=== PATIENT | female | born 1965 | race Caucasian/White ===

== ENCOUNTER 2018-10-28 09:32 | Outpatient (CLI) | payer OTHER ==
--- NOTE | 2018-10-28 12:48 | Mammography Report ---
Reason: RT BREAST LUMP Procedure Date: 10/28/2018 Accession Number: [id number] / [id number] Procedure: SYDNIE - Diagnostic Dig Bilat CPT Code: FULL RESULT: EXAM: Diagnostic Dig Bilat DATE: 10/28/2018 10:36 AM CLINICAL HISTORY: Diagnostic examination. Right breast lump for 6 months. TECHNIQUE: (B) - Bilateral CC and MLO views were obtained. Right spot CC, right spot MLO and right ML images are obtained. COMPARISON: 01/03/2011. PARENCHYMAL PATTERN: (A) - The breast(s) demonstrate(s) scattered fibroglandular densities. FINDINGS: No mammographic abnormality is identified in the region marked as palpable. There are no suspicious masses, calcifications, or areas of distortion. IMPRESSION: Negative examination. BI-RADS category 1. RECOMMENDATION: (ANNUAL) - Recommend routine annual screening mammography. BI-RADS CATEGORY: (1) - Negative. STANDARD QUALIFYING STATEMENTS: 1. This examination was not reviewed with the aid of Computer-Aided Detection (CAD). 2. A negative or benign imaging report should not preclude biopsy if clinically suspicious findings are present. 3. Dense breasts may obscure an underlying neoplasm. 4. This examination was reviewed with the aid of 3D breast imaging (tomosynthesis).
== END 2018-10-28 09:33 | disposition home or self-care (01) ==
LOC: DI 09:32
PROVIDERS: ATTEND Nurse Practitioner Family
DX: N63.14 Unspecified lump in the right breast, lower inner quadrant (principal)
CPT/HCPCS: 77062; 77066

== ENCOUNTER 2019-04-05 09:59 | Emergency (ER) | payer OTHER ==
--- NOTE | 2019-04-05 10:19 | ED Physician Documentation ---
PD HPI NVD - Stated complaint Stated Complaint: FEMALE /VOMITING - Chief complaint Chief Complaint: Abd Pain - History obtained from History obtained from: Patient - History of Present Illness Timing - onset: Today Timing - duration: Hours (4) Timing - details: Abrupt onset, Waxing and waning Pain level now: 9 Associated symptoms: Abdominal pain, Dizzy. No: Fever, Chest pain, Hematemesis, Melena, Hematochezia, Near syncope / syncope, Dysuria, Hematuria Contributing factors: No: Sick contact, Bad food, Travel Recently seen: Not recently seen - Additonal information Additional information: There is a 53-year-old woman who presents with her complains that she has pain in the left side of her abdomen that awoke abruptly at 530 this morning. She describes it as cramping waxing and waning and at a 9 out of 10 at its most severe. She had 2 bowel movements at home that were a little soft without blood in them and she has been vomiting. She feels really dizzy before she vomits but has not passed out. Pain is also radiating into her lower also into the left thigh. She does have a history of kidney stones that passed spontaneously she remembers that being more painful in the flank area. Denies dysuria or hematuria. No fevers although she is felt chilled. She is recently had a head cold that she thought might be allergies because she has had some coughing and a little bit of nasal congestion cage only feeling short of breath. She is status post C-sections and a hysterectomy no GI surgeries. Review of Systems Constitutional: reports: Chills. denies: Fever Ears: denies: Ear pain Nose: reports: Rhinorrhea / runny nose Throat: denies: Sore throat Cardiac: denies: Palpitations Respiratory: reports: Dyspnea, Cough GI: reports: Abdominal Pain, Nausea, Vomiting, Diarrhea (Loose stools). denies: Hematemesis, Bloody / black stool : denies: Dysuria, Frequency, Hesitancy, Incontinent, Hematuria Skin: denies: Rash Musculoskeletal: reports: Back pain Neurologic: denies: Near syncope, Syncope PD PAST MEDICAL HISTORY - Present Medications Home Medications: Ambulatory Orders Medication Instructions Recorded Confirmed Hydrocodone/Acetaminophen 1 - 2 each PO Q6H PRN #14 tablet 04/05/19 [Hydrocodon-Acetaminophen 5-325] Ondansetron Odt [Zofran] 4 mg TL Q6H PRN #10 tablet 04/05/19 - Allergies Allergies/Adverse Reactions: Allergies Allergy/AdvReac Type Severity Reaction Status Date / Time codeine Allergy Hives Verified 04/05/19 10:10 Latex, Natural Rubber Allergy Respiratory Verified 04/05/19 10:10 Sulfa (Sulfonamide Allergy Hives Verified 04/05/19 10:09 Antibiotics) Results - Vitals Vitals: Vital Signs - 24 hr 04/05/19 04/05/19 04/05/19 10:05 10:30 12:09 Temperature 36.0 C L 36.8 C 36.8 C Heart Rate 61 60 63 Respiratory 14 18 18 Rate Blood Pressure 199/78 H 180/86 H 142/74 H O2 Saturation 100 100 97 04/05/19 14:20 Temperature 37.1 C Heart Rate 58 L Respiratory 16 Rate Blood Pressure 137/71 H O2 Saturation 97 Oxygen O2 Source Room air - Labs Labs: Laboratory Tests 04/05/19 04/05/19 04/05/19 10:25 10:25 10:25 WBC 13.9 H RBC 5.10 Hgb 15.6 Hct 44.8 MCV 87.8 MCH 30.6 MCHC 34.8 RDW 11.8 L Plt Count 273 MPV 9.5 Neut # (Auto) 12.2 H Lymph # (Auto) 0.8 L Giles # (Auto) 0.8 Eos # (Auto) 0.0 Baso # (Auto) 0.1 Absolute Nucleated RBC 0.00 Nucleated RBC % 0.0 Sodium 139 Potassium 3.5 Chloride 103 Carbon Dioxide 24 Anion Gap 12.0 BUN 16 Creatinine 0.9 Estimated GFR (MDRD) 66 L Glucose 126 H Calcium 9.5 Total Bilirubin 1.3 H AST 22 ALT 17 Alkaline Phosphatase 62 Total Protein 7.8 Albumin 4.9 Globulin 2.9 Albumin/Globulin Ratio 1.7 Lipase 35 Urine Color YELLOW Urine Clarity TURBID Urine pH 5.5 Ur Specific [place] >=1.030 H Urine Protein 30 H Urine Glucose (UA) NEGATIVE Urine Ketones 40 H Urine Occult Blood MODERATE H Urine Nitrite NEGATIVE Urine Bilirubin SMALL H Urine Urobilinogen 0.2 (NORMAL) Ur Leukocyte Esterase NEGATIVE Urine RBC 0-5 Urine WBC 0-3 Ur Squamous Epith Cells NONE SEEN Amorphous Sediment Marked Urine Bacteria Rare Ur Microscopic Review INDICATED Urine Culture Comments NOT INDICATED Urine HCG, Qual 04/05/19 10:25 WBC RBC Hgb Hct MCV MCH MCHC RDW Plt Count MPV Neut # (Auto) Lymph # (Auto) Giles # (Auto) Eos # (Auto) Baso # (Auto) Absolute Nucleated RBC Nucleated RBC % Sodium Potassium Chloride Carbon Dioxide Anion Gap BUN Creatinine Estimated GFR (MDRD) Glucose Calcium Total Bilirubin AST ALT Alkaline Phosphatase Total Protein Albumin Globulin Albumin/Globulin Ratio Lipase Urine Color Urine Clarity Urine pH Ur Specific [place] >1.030 Urine Protein Urine Glucose (UA) Urine Ketones Urine Occult Blood Urine Nitrite Urine Bilirubin Urine Urobilinogen Ur Leukocyte Esterase Urine RBC Urine WBC Ur Squamous Epith Cells Amorphous Sediment Urine Bacteria Ur Microscopic Review Urine Culture Comments Urine HCG, Qual NEGATIVE - Rads (name of study) ct abd/pelvis Radiology: See rad report (6mm prox L ureteral stone) PD MEDICAL DECISION MAKING - ED course Complexity details: reviewed results, re-evaluated patient, d/w patient ED course: Patient was initially given 30 of Toradol IV as well as Zofran 4 mg IV. Is she said her pain was down to about a 4 out of 10. Urinalysis had red blood cells in it and her CT showed a large about 6 mm stone in the left proximal ureter with some hydronephrosis. Patient was given Dilaudid IV and her pain was down to a 2 out of 10 which she said was very tolerable. She had not been vomiting. She feels comfortable going home and will be provided the number for the urologist in [place]. She is to contact them on Sunday morning and in the meantime if she is feeling worse with increasing pain that is not controlled with hydrocodone prescription, she develops fever, she is vomiting and cannot ke ep anything down or is not urinating she needs to return for reevaluation. She states understanding. Departure - Departure Disposition: Home, Self Care Clinical Impression: Renal colic Condition: Good Instructions: ED Stone Renal W Colic Follow-Up: Shakir Pulliam MD [Physician No Access] - Prescriptions: Hydrocodone/Acetaminophen [Hydrocodon-Acetaminophen 5-325] 1 - 2 each PO Q6H PRN #14 tablet PRN Reason: pain Ondansetron Odt [Zofran] 4 mg TL Q6H PRN #10 tablet PRN Reason: Nausea / Vomiting Comments: Make sure that you are drinking plenty of water. Strain all the urine and save the stone if it is passed. Take hydrocodone if needed for pain. May also use ibuprofen [id number]. Use Zofran if needed for nausea or vomiting. Call the urology clinic in [place] on Sunday to arrange for follow-up appointment. Return for reevaluation if you have increasing pain is not controlled with the hydrocodone, you are vomiting and cannot keep anything down, you develop fever or are not urinating.
[2019-04-05] MEDS ORDERED: ONDANSETRON 4 MG/2 ML VIAL IVP STA (10:30)
[2019-04-05] MEDS ORDERED: SODIUM CHLORIDE 0.9% 1,000 ML IV ONE (10:30)
[2019-04-05] MEDS ORDERED: KETOROLAC 30 MG/ML VIAL IVP STA (10:30)
[2019-04-05 10:41] LABS: BASOPHILS # (AUTO) 0.1 10^3/uL (0.0-0.1); BASOPHILS % (AUTO) 0.5 %; BILIRUBIN,URINE SMALL (NEGATIVE); EOSINOPHILS % (AUTO) 0.2 %; GLUCOSE, URINE (UA) NEGATIVE (NEGATIVE); HGB - HEMOGLOBIN 15.6 g/dL (12.0-16.0); KETONES,URINE (UA) 40 mg/dL (NEGATIVE); LEUKOCYTE ESTERASE, URINE NEGATIVE (NEGATIVE); LYMPHOCYTES # (AUTO) 0.8 10^3/uL (1.5-3.5); LYMPHOCYTES % (AUTO) 5.8 %; MEAN CORPUSCULAR HEMOGLOBIN 30.6 pg (27.0-31.0); MEAN CORPUSCULAR HGB CONC 34.8 g/dL (32.0-36.0); MEAN CORPUSCULAR VOLUME 87.8 fL (81.0-99.0); MEAN PLATELET VOLUME 9.5 fL (7.9-10.8); MONOCYTES # (AUTO) 0.8 10^3/uL (0.0-1.0); MONOCYTES % (AUTO) 5.4 %; NEUTROPHILS # (AUTO) 12.2 10^3/uL (1.5-6.6); NEUTROPHILS % (AUTO) 87.6 %; NITRITE,URINE NEGATIVE (NEGATIVE); OCCULT BLOOD,URINE MODERATE (NEGATIVE); PH,URINE 5.5 PH (5.0-7.5); PLT - PLATELET COUNT 273 10^3/uL (130-450); PROTEIN,URINE 30 mg/dL (NEGATIVE); RED CELL DISTRIBUTION WIDTH 11.8 % (12.0-15.0); UROBILINOGEN,URINE 0.2 (NORMAL) E.U./dL (NORMAL); WHITE BLOOD COUNT 13.9 x10^3/uL (4.8-10.8)
[2019-04-05 10:43] LABS: CLARITY,URINE TURBID (CLEAR)
[2019-04-05 10:44] LABS: HCG UR QUAL NEGATIVE
[2019-04-05 10:45] LABS: ICTOTEST,URINE NEG
[2019-04-05 10:50] LABS: AMORPHOUS SEDIMENT,UR Marked /LPF; BACTERIA,URINE Rare /HPF (None Seen); RBC,URINE 0-5 /HPF (0-5); SQUAMOUS EPITHELIAL CELL,UR NONE SEEN (<= Few)
[2019-04-05 10:52] LABS: ALBUMIN 4.9 g/dL (3.2-5.5); ALBUMIN/GLOBULIN RATIO 1.7 (1.0-2.2); BILIRUBIN,TOTAL 1.3 mg/dL (0.2-1.0); CALCIUM 9.5 mg/dL (8.5-10.3); CREATININE 0.9 mg/dL (0.4-1.0); TOTAL PROTEIN 7.8 g/dL (6.7-8.2)
[2019-04-05] MEDS ORDERED: LIDOCAINE VISCOUS 2% 100 ML BOTTLE MM STA (11:00)
[2019-04-05] MEDS ORDERED: LIDOCAINE VISCOUS 2% 15 ML UDC MM STA (11:13)
--- NOTE | 2019-04-05 11:45 | CT Report ---
Reason: L back and abd pain Procedure Date: 04/05/2019 Accession Number: [id number] / [id number] Procedure: CT - Abdomen/Pelvis WO CPT Code: Final Report FULL RESULT: EXAM: CT ABDOMEN AND PELVIS (CT KUB) EXAM DATE: 04/05/2019 11:13 AM. CLINICAL HISTORY: L back and abd pain. COMPARISONS: None. TECHNIQUE: Routine axial helical CT imaging was performed through the abdomen and pelvis without IV contrast. Reconstructions: Coronal and sagittal. In accordance with CT protocol optimization, one or more of the following dose reduction techniques were utilized for this exam: automated exposure control, adjustment of mA and/or KV based on patient size, or use of iterative reconstructive technique. FINDINGS: Lung Bases: Unremarkable. Right Kidney/Ureter: Nonobstructing 3 mm inferior pole calculus. No contour deformity. No hydronephrosis. No apparent abnormal ureteral dilatation. Left Kidney/Ureter: Positive for moderate left hydronephrosis secondary to a 6 mm UPJ level calculus. There are also several left hemipelvis calcifications which are probably phleboliths but are in the region of the distal ureter. The lack of mid ureteral overdistention argues against distal ureteral calculus however. Moderate left perinephric edema noted. Punctate inferior pole nonobstructing calculus also seen. Other Solid Organs: Noncontrast images of the solid organs are grossly unremarkable. There may be some mild fatty infiltrate at the anterior aspect of the pancreatic head. Gallbladder/Bile Ducts: Unremarkable. Peritoneal Cavity: No free fluid, free air or judy adenopathy. Bowel is grossly unremarkable. Pelvic Organs: Relatively decompressed urinary bladder. No intravesicular calculus noted. No intrapelvic lymphadenopathy or free fluid. Vasculature: Unremarkable. Other: None. IMPRESSION: Positive for left UPJ level obstruction secondary to a 6 mm calculus causing moderate hydronephrosis and perinephric edema. Bilateral nonobstructing renal calculi also seen. Otherwise essentially unremarkable exam. RADIA
[2019-04-05] MEDS ORDERED: HYDROmorphone 1 MG/ML CARPUJECT IVP STA (13:01)
[2019-04-05 14:20] VITALS: BP 137/71
== END 2019-04-05 14:47 | disposition home or self-care (01) ==
LOC: ED 09:59
DX: N13.2 Hydronephrosis with renal and ureteral calculous obstruction (principal); N20.2 Calculus of kidney with calculus of ureter; Z87.442 Personal history of urinary calculi
CPT/HCPCS: 36415; 74176; 80053; 81001; 81025; 83690; 85025; 96361; 96374; 96375; 99284; J1170; 81003; 87086

== ENCOUNTER 2022-10-02 16:28 | Outpatient (CLI) | payer OTHER ==
--- NOTE | 2022-10-02 17:10 | XRAY Report ---
PROCEDURE: Calcaneus RT INDICATIONS: PAIN POSTERIOR TECHNIQUE: Two views of the calcaneus were acquired. COMPARISON: None FINDINGS: Bones: No fractures or dislocations. No suspicious bony lesions. Prominent calcaneal spur. Soft tissues: No suspicious calcifications. Achilles tendon appears normal. IMPRESSION: No visualized acute fracture or dislocation. However, occult injury cannot be excluded. Recommend sam rt interval imaging follow-up in 7-10 days as clinically indicated for additional evaluation. Reviewed by: Bess Leach MD on 10/02/2022 5:08 PM PDT Approved by: Bess Leach MD on 10/02/2022 5:08 PM PDT Station ID: [id number]
== END 2022-10-02 16:29 | disposition home or self-care (01) ==
LOC: DI 16:28
PROVIDERS: ATTEND Podiatrist
DX: M79.671 Pain in right foot (principal)

== ENCOUNTER 2022-10-09 06:43 | Emergency (ER) | payer OTHER ==
--- OUTSIDE RECORDS SUMMARY | 2022-10-09 06:51 | EXTERNAL MEDICAL SUMMARY RPT | Continuity of Care Document ---
Author Name Unknown Address [address] [place] [address] Phone Organization [facility] Address [address] [place] [address] Phone Problems date description facility 2022-07-26 09:14 Postprocedural hypothyroidism I [facility] 2022-07-26 10:[address] [facility] Results/Labs test date facility value unit notes
[2022-10-09] MEDS ORDERED: METOCLOPRAMIDE 10 MG/2 ML VIAL IVP STA (07:08)
--- NOTE | 2022-10-09 07:09 | ED Physician Documentation ---
History of Present Illness - Stated complaint Stated Complaint: NAUSEA - Chief complaint Chief Complaint: General - History obtained from History obtained from: Patient - Additonal information Additional information: 57-year-old woman with history of occasional migraines, hypertension, and hypothyroidism. She has been having on and off vertigo for a month. She has a history of it but it milder and associated with allergies. She was put on a course of prednisone which was helpful but the vertigo recurred today. It is worsened with head motions and does note some headaches with it which are so mewhat atypical for her migraines. She has a low hum in both of her ears. Denies fevers. Today is the first time she vomited from it but has been nauseous in the past. PD PAST MEDICAL HISTORY - Past Medical History Cardiovascular: None Respiratory: Asthma Neuro: Migraines Endocrine/Autoimmune: HyPOthyroidism GI: GERD : None HEENT: Other Psych: None Musculoskeletal: None Derm: None - Past Surgical History Past Surgical History: Yes Ortho: Shoulder arthroplasty /[employer]ECUTIVE: section, Hysterectomy - Present Medications Home Medications: Ambulatory Orders Medication Instructions Recorded Confirmed Amox/Clav 875/125 [Augmentin] 1 each PO Q12H #20 tablet 10/09/22 Fluticasone [Flonase] 1 sprays CLAUDIA DAILY 10/09/22 10/09/22 Levothyroxine [Synthroid] 88 mcg PO QDAC 10/09/22 10/09/22 Losartan Potassium 25 mg PO DAILY 10/09/22 10/09/22 Metoclopramide [Reglan] 10 mg PO Q6H PRN #20 tablet 10/09/22 Omeprazole Magnesium 20 mg PO DAILY 10/09/22 10/09/22 - Allergies Allergies/Adverse Reactions: Allergies Allergy/AdvReac Type Severity Reaction Status Date / Time codeine Allergy Hives Verified 04/05/19 10:10 Latex, Natural Rubber Allergy Respiratory Verified 04/05/19 10:10 Sulfa (Sulfonamide Allergy Hives Verified 04/05/19 10:09 Antibiotics) almond AdvReac Unknown Verified 10/09/22 06:51 - Social History Does the pt smoke?: No Smoking Status: Never smoker Does the pt drink ETOH?: No Does the pt have substance abuse?: No - Immunizations Immunizations are current?: Yes - POLST Patient has POLST: No PD ED PE NORMAL - Vitals Vital signs reviewed: Yes - General General: Alert and oriented X 3, No acute distress - HEENT HEENT: PERRL, EOMI (She has nystagmus on leftward gaze) - Neck Neck: Supple, no meningeal sign, No bony TTP - Cardiac Cardiac: RRR, No murmur - Respiratory Respiratory: No respiratory distress, Clear bilaterally - Abdomen Abdomen: Non tender - Back Back: No CVA TTP, No spinal TTP - Derm Derm: Normal color, Warm and dry - Neuro Neuro: Alert and oriented X 3, 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 2-12 intact, No motor deficit, No sensory deficit, Normal speech, Other (Ataxia on left-sided finger-nose testing) Eye Opening: Spontaneous Motor: Obeys Commands Verbal: Oriented GCS Score: 15 - Psych Psych: Normal mood, Normal affect Results - Vitals Vitals: Vital Signs - 24 hr 10/09/22 10/09/22 06:45 11:00 Temperature 36.2 C L 36.7 C Heart Rate 67 61 Respiratory 16 12 Rate Blood Pressure 148/69 H 148/83 H O2 Saturation 99 100 Oxygen O2 Source Room air - Labs Labs: Laboratory Tests 10/09/22 10/09/22 10/09/22 07:13 07:13 07:13 WBC 8.0 RBC 4.60 Hgb 14.2 Hct 41.4 MCV 90.0 MCH 30.9 MCHC 34.3 RDW 11.9 L Plt Count 211 MPV 9.4 Neut # (Auto) 6.0 Lymph # (Auto) 1.1 L [place] # (Auto) 0.6 Eos # (Auto) 0.1 Baso # (Auto) 0.0 Absolute Nucleated RBC 0.00 Nucleated RBC % 0.0 Sodium 138 Potassium 3.5 Chloride 105 Carbon Dioxide 27 Anion Gap 6.0 BUN 19 Creatinine 0.7 Estimated GFR (MDRD) 87 L Glucose 112 H Calcium 9.4 TSH 2.22 - Rads (name of study) MRI of the brain with and without contrast showing left maxillary sinusitis, numerous areas concerning for MS and age-related volume loss. Relevant Findings:: Final report received, EMP independent interpretation of test PD Medical Decision Making - ED course Complexity details: reviewed results (CBC, CMP, TSH were normal.) ED course: 57-year-old woman with history of vertigo presents with same. Its been going on for a month and did get relief with prednisone. Concerning the on her exam she does have some ataxia in the left upper extremity. She also has nystagmus on leftward gaze. This could be vestibular migraine but mass lesion is also a concern as would be subacute stroke. Certainly not a tPA candidate given the time course. Given the above she was put in line for an MRI of the brain. She did receive IV Reglan here which was very helpful for her symptomatology. Subsequently her MRI showed both sinusitis as well as findings consistent with something like multiple sclerosis and she was counseled on this and the need for neurologic follow-up. Departure - Departure Disposition: Home, Self Care Clinical Impression: Demyelinating changes in brain, Vertigo Sinusitis Qualifiers: Sinusitis location: maxillary Chronicity: acute Recurrence: non-recurrent Qualified Code(s): J01.00 - Acute maxillary sinusitis, unspecified Condition: Good Record reviewed to determine appropriate education?: Yes Instructions: Multiple Sclerosis, ED Sinusitis Abx Tx Follow-Up: Rufina Garcia ARNP [Primary Care Provider] - Prescriptions: Amox/Clav 875/125 [Augmentin] 1 each PO Q12H #20 tablet Metoclopramide [Reglan] 10 mg PO Q6H PRN #20 tablet PRN Reason: nausea or headache Comments: Follow-up with your primary care PA, suspect she will refer you to a neurologist for work-up of what looks like multiple sclerosis on your MRI. In the meantime you also had sinusitis on the MRI and prescribing antibiotics for same. Return for new or worsening symptoms. Discharge Date/Time: 10/09/22 11:11
[2022-10-09 07:19] LABS: BASOPHILS % (AUTO) 0.5 %; EOSINOPHILS # (AUTO) 0.1 10^3/uL (0.0-0.7); EOSINOPHILS % (AUTO) 1.8 %; HCT - HEMATOCRIT 41.4 % (37.0-47.0); HGB - HEMOGLOBIN 14.2 g/dL (12.0-16.0); LYMPHOCYTES # (AUTO) 1.1 10^3/uL (1.5-3.5); LYMPHOCYTES % (AUTO) 13.9 %; MEAN CORPUSCULAR HEMOGLOBIN 30.9 pg (27.0-31.0); MEAN CORPUSCULAR HGB CONC 34.3 g/dL (32.0-36.0); MEAN PLATELET VOLUME 9.4 fL (7.9-10.8); MONOCYTES # (AUTO) 0.6 10^3/uL (0.0-1.0); MONOCYTES % (AUTO) 7.8 %; NEUTROPHILS % (AUTO) 75.1 %; PLT - PLATELET COUNT 211 10^3/uL (130-450); RED CELL DISTRIBUTION WIDTH 11.9 % (12.0-15.0)
[2022-10-09] MEDS ORDERED: GADOBUTROL 10 MMOL/10 ML VIAL ONE (07:28)
[2022-10-09 07:31] LABS: CALCIUM 9.4 mg/dL (8.5-10.3); CREATININE 0.7 mg/dL (0.6-1.3); POTASSIUM 3.5 mmol/L (3.5-4.5)
[2022-10-09 11:19] VITALS: BP 148/83
[2022-10-09] MEDS ORDERED: GADOBUTROL 10 MMOL/10 ML VIAL IVP ONE (12:39)
--- NOTE | 2022-10-09 13:32 | MRI Report ---
PROCEDURE: BRAIN W/WO INDICATIONS: vertigo with ataxia CONTRAST: gadavist 8.3ml TECHNIQUE: Noncontrast axial T1 spin echo, axial T2 fast spin echo, sagittal and axial FLAIR, coronal T2 fast sp in echo, axial gradient echo, axial diffusion and ADC through the brain. After the administration of contrast, axial and coronal T1 spin echo with fat saturation through the brain. COMPARISON: None. FINDINGS: Image quality: Excellent. CSF spaces: Basal cisterns are patent. No extra-axial fluid collections. Ventricles are normal in size and shape. Brain: Numerous T2 hyperintense areas are seen scattered in the subcortical and deep white matter of bilateral cerebral hemispheres. No contrast enhancement is noted in these areas. No midline shift. N o intracranial bleeds. There is cerebral volume loss for age. Study done The brainstem appears normal . Diffusion-weighted images demonstrate no acute ischemic insults. No chronic ischemic insults. No rmal intravascular flow voids are present. Skull and face: Calvarial marrow is normal in signal. Orbits appear normal. Sinuses: Retention cyst versus mucocele is seen in left maxillary sinus. Rest of the sinuses and mast oids appear clear. IMPRESSION: 1. No acute infarction. No intracranial bleed, midline shift or mass effect. 2. Numerous T2 hyperintense areas scattered in subcortical and deep white matter bilateral cerebral h emispheres concerning for demyelinating disease such as multiple sclerosis. No area of abnormal contr ast enhancement is noted to suggest actively demyelinating disease at this time. 3. Age-related volume loss. 4. Mild left maxillary sinusitis. Reviewed by: Frank Garcia MD on 10/09/2022 9:48 AM PDT Approved by: Frank Garcia MD on 10/09/2022 9:48 AM PDT Station ID: [id number]
== END 2022-10-09 11:11 | disposition home or self-care (01) ==
LOC: ED 06:43
DX: R90.89 Other abnormal findings on diagnostic imaging of central nervous system (principal); R42 Dizziness and giddiness; J01.00 Acute maxillary sinusitis, unspecified
CPT/HCPCS: 36415; 70553; 80048; 84443; 85025; 96374; 99284; A9585; J2765